=== PATIENT | male | born 1980 | race Caucasian/White ===

== ENCOUNTER → 2018-03-17 | Outpatient (CLI) | payer OTHER ==
[~2018-03-17] MED LIST: E-Z-GAS II EFFERVESCENT PACKET (SODIUM BICARB./CITRIC ACID/SIMETHICONE) As Ordered ONE; E-Z-HD 98% w/w 340GM SUSP BTL As Ordered ONE; E-Z-PAQUE 96% w/w SUSP 176GM BTL As Ordered ONE
--- NOTE | 2018-03-17 12:31 | REP ---
ESOPHAGRAM: HISTORY: Dysphasia. History of esophageal meat impaction in 2014. History of solid food getting stuck. FINDINGS: The oropharyngeal phase of the esophagram is observed fluoroscopically and recorded on rapid sequence spot filming. There is no motor discoordination of the oropharyngeal phase of barium swallow. No laryngeal penetration or tracheal aspiration is seen. The cervical esophagus is unremarkable. The thoracic esophagus is normal in caliber and course. Normal peristalsis is seen. There is a sliding type hiatal hernia noted with minimal mucosal irregularity of the distal esophagus consistent with reflux esophagitis. Reflux was not witnessed during examination. Preliminary medicinal plant picker view of the chest is normal. Fluoroscopy time with this examination is 0.5 minutes. IMPRESSION: Small sliding-type hiatal hernia with minimal distal esophageal irregularity consistent with reflux esophagitis. No significant stricture is appreciated. Electronically Signed by Cornell Bar MD 03/17/2018 01:22 P
== END ==
LOC: M RAD 09:12
PROVIDERS: ATTEND Physician Assistant
DX: K44.9 Diaphragmatic hernia without obstruction or gangrene (principal); K21.9 Gastro-esophageal reflux disease without esophagitis

== ENCOUNTER 2022-04-26 23:20 | Emergency (ER) | payer OTHER ==
[~2022-04-26] VITALS: Ht 177.8 cm; Wt 102.0 kg
[2022-04-27 01:21] VITALS: BP 134/84
== END 2022-04-27 01:23 | disposition home or self-care (01) ==
LOC: M ED 23:20
DX: T18.128A Food in esophagus causing other injury, initial encounter (principal)